=== PATIENT | male | born 1995 | race African-American/Black ===

== ENCOUNTER 2019-04-01 21:13 | Emergency (ER) | payer MEDICAID, OTHER ==
[~2019-04-01] VITALS: Ht 172.7 cm; Wt 80.0 kg
[2019-04-02 02:50] VITALS: BP 121/76
== END 2019-04-02 02:50 | disposition home or self-care (01) ==
LOC: EMS 21:16
DX: S01.111A Laceration without foreign body of right eyelid and periocular area, initial encounter (principal); R11.10 Vomiting, unspecified; H53.8 Other visual disturbances; F12.90 Cannabis use, unspecified, uncomplicated; W01.198A Fall on same level from slipping, tripping and stumbling with subsequent striking against other object, initial encounter; Y93.89 Activity, other specified; Y92.89 Other specified places as the place of occurrence of the external cause; Y99.8 Other external cause status
CPT/HCPCS: 70450; 70486